=== PATIENT | female | born 1995 | race African-American/Black ===

== ENCOUNTER 2016-07-01 13:53 | Emergency (ER) | payer OTHER ==
[2016-07-01 14:06] VITALS: BP 145/89; PULSE 87; TEMP 98.2; BMI 21.9
[2016-07-01] MEDS ORDERED: ALBUTEROL SO4 2.5/IPRATROPIUM 0.5 INH SOL 3 ML VIAL.NEB. NEB ONE ×2 (15:20→15:57)
--- NOTE | 2016-07-01 15:57 | PDOC ---
History of Present Illness - General Chief Complaint: Asthma Stated Complaint: ASTHMA Time Seen by Provider: 07/01/16 14:25 - History of Present Illness Initial Comments: 07/01/16 15:26 CHIEF COMPLAINT: asthma exacerbation HISTORY OF PRESENT ILLNESS: 21 yo F with hx of asthma presents to [facility] with shortness of breath x 1 week. Patient states she has a history of asthma but has not had an asthma attack for many years. She reports "a lot of coughing this week, it's productive and then it becomes dry" but denies any fever, nausea, vomiting, diarrhea, body aches, runny nose, or sneezing. No recent travel or sick contacts. PAST MEDICAL HISTORY: Denies past medical history FAMILY HISTORY: Denies SOCIAL HISTORY: Denies tobacco, alcohol, illicit drug use. SURGICAL HISTORY: Denies ALLERGIES: No known drug allergies REVIEW OF SYSTEMS General/Constitutional: Denies fever or chills. Denies weakness, weight change. HEENT: Denies change in vision. Denies ear pain or discharge. Denies sore throat. Cardiovascular: Denies chest pain or shortness of breath. Respiratory: Cough x 1 week. Wheezing for the last 2-3 days. Denies hemoptysis. Gastrointestinal: Denies nausea, vomiting, diarrhea or constipation. Denies rectal bleeding. Genitourinary: Denies dysuria, frequency, or change in urination. Musculoskeletal: Denies joint or muscle swelling or pain. Denies neck or back pain. Skin and breasts: Denies rash or easy bruising. Neurologic: Denies headache, vertigo, loss of consciousness, or loss of sensation. PHYSICAL EXAM General Appearance: Well-appearing, appropriately dressed. No apparent distress. HEENT: EOMI, PERRLA, normal voice, pharynx normal. No conjunctival pallor. No photophobia, scleral icterus. Neck: Supple. Trachea midline. No tenderness, rigidity, carotid bruit, stridor , lymphadenopathy, or thyromegaly. Respiratory/Chest: Diffuse wheezing to bilateral lungs. No shortness of breath , chest tenderness, respiratory distress, accessory muscle use. No crackles, rales, rhonchi, stridor, dullness Cardiovascular: RRR. S1, S2. Musculoskeletal/Extremities: Normal inspection. No tenderness to extremities, pedal edema, swelling, erythema or deformity. Integumentary: Appropriate color, dry, warm. No cyanosis, erythema, jaundice or rash Neurologic: light out examiner II-XII intact. Fully oriented, alert. Appropriate mood/affect. Motor strength 5/5. No appreciable EOM palsy, facial droop or sensory deficit. Past History - Past Medical History Allergies/Adverse Reactions: Allergies Allergy/AdvReac Type Severity Reaction Status Date / Time No Known Allergies Allergy Verified 11/20/11 20:06 Home Medications: Ambulatory Orders Unobtainable Home Med List 0 dose .ROUTE UTDICT 11/20/11 Albuterol Sulfate Inhaler - [Ventolin HFA Inhaler -] 1 - 2 inh PO QID #1 inhaler 07/01/16 Azithromycin [Zithromax Tri-Gui (3 DAYS) -] 500 mg PO DAILY #3 tablet 07/01/16 Asthma: Yes HIV: Yes - Psycho/Social/Smoking Cessation Hx Anxiety: No Suicidal Ideation: No Smoking Status: No Smoking History: Never smoked Number of Cigarettes Smoked Daily: 0 Hx Alcohol Use: No Drug/Substance Use Hx: No Substance Use Type: None *Physical Exam - Vital Signs Last Vital Signs Temp Pulse Resp BP Pulse Ox 98.2 F 87 20 145/89 95 07/01/16 14:02 07/01/16 14:02 07/01/16 14:02 07/01/16 14:02 07/01/16 14:02 ED Treatment Course - Medications Given in the ED: ED Medications Discontinued Medications Generic Name Dose Route Start Last Admin Trade Name Freq PRN Reason Stop Dose Admin Albuterol/Ipratropium 1 amp 07/01/16 15:20 07/01/16 15:22 Duoneb - NEB 07/01/16 15:21 1 amp ONCE ONE Administration Medical Decision Making - Medical Decision Making 07/01/16 15:57 21 yo F with hx of asthma presents to [facility] with asthma exacerbation. -duoneb treatment Patient reassessed, states she still feels SOB. -2nd duoneb treatment -10 mg Decadron po Advised patient to follow up with primary care doctor for further management of asthma. Advised patient of signs and symptoms for return to ER; patient verbalized understanding and agrees to plan. 07/01/16 15:59 *DC/Admit/Observation/Transfer Diagnosis at time of Disposition: Bronchitis with asthma, acute - Discharge Dispostion Disposition: HOME Condition at time of disposition: Improved - Prescriptions Prescriptions: Albuterol Sulfate Inhaler - [Ventolin HFA Inhaler -] 1 - 2 inh PO QID #1 inhaler Azithromycin [Zithromax Tri-Gui (3 DAYS) -] 500 mg PO DAILY #3 tablet - Patient Instructions Printed Discharge Instructions: DI for Asthma -- Adult, DI for Acute Bronchitis Additional Instructions: Please take medications as prescribed and follow up with your primary care doctor within 3-5 days for further evaluation and continued management of your asthma. If you experience any shortness of breath unrelieved by your inhaler, fever, vomiting, diarrhea, or any new or worsening symptoms, please return to the ER.
[2016-07-01] MEDS ORDERED: DEXAMETHASONE LIQUID 0.5 MG/5 ML 240 ML BULK BOTTLE PO ONE (15:59)
[2016-07-01] MEDS ORDERED: DEXAMETHASONE SOD PHOSPHATE 10 MG/1 ML VIAL ONE (16:02)
== END 2016-07-01 16:10 | disposition home or self-care (01) ==
LOC: JERFT 13:53
PROC: 3E0F7GC Introduction of Other Therapeutic Substance into Respiratory Tract, Via Natural or Artificial Opening (ICD-10-PCS; principal; 2016-07-01)
DX: J45.909 Unspecified asthma, uncomplicated (principal); J40 Bronchitis, not specified as acute or chronic
CPT/HCPCS: 99281-25

== ENCOUNTER 2017-06-22 09:48 | Emergency (ER) | payer OTHER ==
[2017-06-22 09:55] VITALS: BMI 23.6
[2017-06-22] MEDS ORDERED: ACETAMINOPHEN 500 MG TABLET (FP) PO ONE (12:13)
--- NOTE | 2017-06-22 12:17 | PDOC ---
History of Present Illness - General Chief Complaint: Cold Symptoms Stated Complaint: THROAT PAIN, (ASTHMA), BODY ACHES Time Seen by Provider: 06/22/17 12:02 History Source: Patient Exam Limitations: No Limitations - History of Present Illness Initial Comments: 06/22/17 12:13 This is a 22-year-old female with past medical history of asthma and HIV positive who presents with fevers, moist cough, sore throat, headaches, upper back pain, body aches, shortness of breath and wheezing since awaking this morning. Patient reports her infectious disease doctor is at or [facility] her most recent viral load was 80,000 the patient reports that number is down trending. She is unsure of her CD4 count. Patient states she has never been intubated for her asthma and only uses her pump approximately 4-5 times annually. Patient denies nasal congestion, chest pain, abdominal pain, nausea, vomiting, diarrhea, dysuria, Hemoptysis or weight loss. Past History - Past Medical History Allergies/Adverse Reactions: Allergies Allergy/AdvReac Type Severity Reaction Status Date / Time No Known Allergies Allergy Verified 06/22/17 09:54 Home Medications: Ambulatory Orders Amoxicillin - [Amoxicillin 500mg Capsule -] 500 mg PO BID #20 capsule 06/22/17 predniSONE [Deltasone -] 40 mg PO DAILY #6 tablet 06/22/17 Asthma: Yes COPD: No - Suicide/Smoking/Psychosocial Hx Smoking Status: No Smoking History: Current every day smoker Number of Cigarettes Smoked Daily: 0 Information on smoking cessation initiated: Yes 'Breaking Loose' booklet given: 06/22/17 Hx Alcohol Use: No Drug/Substance Use Hx: Yes (marijuana) Substance Use Type: None Review of Systems - Review of Systems Able to Perform ROS?: Yes Is the patient limited Cymro proficient: No Constitutional: Yes: See HPI HEENTM: Yes: See HPI Respiratory: Yes: See HPI Cardiac (ROS): No: Symptoms Reported ABD/GI: No: Symptoms Reported : No: Symptoms Reported Musculoskeletal: Yes: See HPI Integumentary: No: Symptoms Reported Neurological: No: Symptoms reported Endocrine: No: Symptoms Reported Hematologic/Lymphatic: No: Symptoms Reported *Physical Exam - Vital Signs Last Vital Signs Temp Pulse Resp BP Pulse Ox 99.7 F H 105 H 19 139/89 97 06/22/17 09:51 06/22/17 09:51 06/22/17 09:51 06/22/17 09:51 06/22/17 09:51 - Physical Exam General Appearance: Yes: Appropriately Dressed. No: Apparent Distress HEENT: positive: Pharyngeal Erythema. negative: Tonsillar Exudate, Tonsillar Erythema, Nasal Congestion, Rhinorrhea, Sinus Tenderness Neck: positive: Trachea midline, Supple Respiratory/Chest: positive: Wheezing. negative: Respiratory Distress, Accessory Muscle Use Cardiovascular: positive: Regular Rhythm, Tachycardia. negative: Murmur Gastrointestinal/Abdominal: positive: Normal Bowel Sounds, Soft. negative: Tender Musculoskeletal: positive: Normal Inspection. negative: CVA Tenderness Extremity: positive: Normal Inspection, Normal Range of Motion Integumentary: positive: Normal Color, Dry, Warm Neurologic: positive: payroll accounting manager II-XII NML intact, Fully Oriented, Alert, Normal Response, Motor Strength 08/07 ED Treatment Course - LABORATORY CBC & Chemistry Diagram: 06/22/17 14:37 06/22/17 14:37 Medical Decision Making - Medical Decision Making 06/22/17 12:29 A/P: 22-year-old woman with history of HIV and asthma with moist cough upper back pain shortness of breath and wheezing, short throat and headache since awaking this morning Pharyngeal erythema present. No exudates present No cervical lymphadenopathy present Lungs with scattered wheezes No tenderness to palpation of back S1 and S2 present patient is currently tachycardic a heart rate of 110. No murmur, rub or gallop present Abdomen soft nontender nondistended. Skin warm to touch. Given the patient is HIV positive with a viral load of 80,000 I will rule out for pneumonia, influenza, sepsis. Labs including lactate and blood cultures, urinalysis, urine , urine culture Chest x-ray chest for to the main ER for further evaluation. Sign out given to SUZY Larson. *DC/Admit/Observation/Transfer Diagnosis at time of Disposition: Strep throat, Asthma exacerbation - Discharge Dispostion Disposition: HOME Condition at time of disposition: Improved - Prescriptions Prescriptions: Amoxicillin - [Amoxicillin 500mg Capsule -] 500 mg PO BID #20 capsule predniSONE [Deltasone -] 40 mg PO DAILY #6 tablet - Referrals - Patient Instructions Printed Discharge Instructions: DI for Asthma -- Adult, DI for Strep Throat Additional Instructions: Please take your medication as prescribed and please drink plenty of fluids. If you develop any aches or pains you may take Tylenol or Motrin for discomfort. Please carry your inhaler at all times and take prednisone starting tomorrow since your given your first dose here in the ER. Please also follow-up with your primary care physician. - Post Discharge Activity
[2017-06-22] MEDS ORDERED: ACETAMINOPHEN 500 MG TABLET (FP) ONE (12:19)
[2017-06-22] MEDS ORDERED: ALBUTEROL SO4 2.5/IPRATROPIUM 0.5 INH SOL 3 ML VIAL.NEB. NEB ONE ×3 (12:19→14:33)
[2017-06-22] MEDS: ALBUTEROL SO4 2.5/IPRATROPIUM 0.5 INH SOL 3 ML VIAL.NEB. NEB SCH ×4 (12:21→15:19)
[2017-06-22] MEDS ORDERED: methylPREDNISolone NA SUCC 125 MG/2 ML VIAL IVPB ONE (12:26)
--- NOTE | 2017-06-22 13:03 | PDOC ---
*Physical Exam - Vital Signs Last Vital Signs Temp Pulse Resp BP Pulse Ox 99.7 F H 105 H 19 139/89 97 06/22/17 09:51 06/22/17 09:51 06/22/17 09:51 06/22/17 09:51 06/22/17 09:51 - Physical Exam HEENT: positive: Pharynx Normal (erythema without exudate), Tonsillar Erythema Neck: positive: Supple. negative: Lymphadenopathy (R), Lymphadenopathy (L) Respiratory/Chest: positive: Wheezing (expiratory to right) Integumentary: positive: Normal Color, Dry, Warm Neurologic: positive: Motor Strength 5/5 (ambulatory) ED Treatment Course - LABORATORY CBC & Chemistry Diagram: 06/22/17 14:37 06/22/17 14:37 - Medications Given in the ED: ED Medications Discontinued Medications Generic Name Dose Route Start Last Admin Trade Name Freq PRN Reason Stop Dose Admin Acetaminophen 1,000 mg 06/22/17 12:13 06/22/17 12:21 Tylenol - PO 06/22/17 12:14 1,000 mg ONCE ONE Administration Medical Decision Making - Medical Decision Making 06/22/17 13:00 Patient received in sign out from SUZY Dillard. Patient here with complaints of pharyngeal erythema along with fever, cough, wheezing. Patient disclosed in fast track that [place] [id number]. Patient denies hemoptysis, weight loss, night sweats recent incarceration or residing in community environments. patient's concerning for sepsis. Workup initiated 06/22/17 14:04 Patient also added for rapid strep along with second DuoNeb 06/22/17 14:04 Laboratory Tests 06/22/17 13:00 Urine Protein 2+ H Urine Ketones Negative Urine Blood 1+ H Urine Urobilinogen 4.0 e.u/dl H Ur Leukocyte Esterase 1+ H Urine WBC (Auto) 9 Urine RBC (Auto) 6 Patient has no urinary complaints or abdominal pain on exam. Patient had urine culture sent 06/22/17 14:34 Influenza negative. Rapid strep positive. Will discharge patient home with amoxicillin along with prednisone for 3 more days. Patient states has an inhaler 06/22/17 15:10 Laboratory Tests 06/22/17 14:37 WBC 9.9 Hgb 14.1 Hct 40.8 Neutrophils % 85.0 H Lymphocytes % 7.9 L 06/22/17 15:20 Laboratory Tests 06/22/17 14:37 Sodium 137 Potassium 3.6 Chloride 100 Carbon Dioxide 24 Anion Gap 13 BUN 8 Creatinine 0.8 Creat Clearance w eGFR > 60 Random Glucose 100 Calcium 9.4 AST 46 H ALT 68 Alkaline Phosphatase 84 Total Protein 8.3 H Albumin 4.6 Selected Entries 06/22/17 15:43 Temperature 98.9 F Pulse Rate [ 90 Apical] Respiratory 16 Rate Blood Pressure 110/62 [Right Arm] Blood Pressure 78 Mean [Right Arm ] O2 Sat by Pulse 98 Oximetry (%) Chest x-ray negative. Patient states feeling better. Laboratory Tests 06/22/17 06/22/17 14:37 14:37 Lactic Acid 1.9 Total Bilirubin 0.6 *DC/Admit/Observation/Transfer Diagnosis at time of Disposition: Strep throat, Asthma exacerbation - Discharge Dispostion Disposition: HOME Condition at time of disposition: Improved - Prescriptions Prescriptions: Amoxicillin - [Amoxicillin 500mg Capsule -] 500 mg PO BID #20 capsule predniSONE [Deltasone -] 40 mg PO DAILY #6 tablet - Referrals - Patient Instructions Printed Discharge Instructions: DI for Asthma -- Adult, DI for Strep Throat Additional Instructions: Please take your medication as prescribed and please drink plenty of fluids. If you develop any aches or pains you may take Tylenol or Motrin for discomfort. Please carry your inhaler at all times and take prednisone starting tomorrow since your given your first dose here in the ER. Please also follow-up with your primary care physician. - Post Discharge Activity
--- NOTE | 2017-06-22 13:12 | PDOC ---
*Physical Exam - Vital Signs Last Vital Signs Temp Pulse Resp BP Pulse Ox 99.7 F H 105 H 19 139/89 97 06/22/17 09:51 06/22/17 09:51 06/22/17 09:51 06/22/17 09:51 06/22/17 09:51 ED Treatment Course - ADDITIONAL ORDERS Additional order review: 06/22/17 12:13 Influenza Types A,B Antigen (YAZMIN) - Preliminary Nasopharyngeal Swab - Preliminary - Medications Given in the ED: ED Medications Discontinued Medications Generic Name Dose Route Start Last Admin Trade Name Freq PRN Reason Stop Dose Admin Acetaminophen 1,000 mg 06/22/17 12:13 06/22/17 12:21 Tylenol - PO 06/22/17 12:14 1,000 mg ONCE ONE Administration Albuterol/Ipratropium 1 amp 06/22/17 12:15 06/22/17 12:21 Duoneb - NEB 06/22/17 13:01 1 amp Q15M RANDI Administration Medical Decision Making - Medical Decision Making 06/22/17 13:12 Patient seen and evaluated with the nurse practitioner. I agree with the overall evaluation, assessment, and management with the following summary of visit: 22-year-old female HIV presents with influenza-like illness consisting of fevers and URI symptoms. Initially seen in fast track, referred to main ED for sepsis workup. Sepsis protocol initiated, we'll reassess
[2017-06-22 13:15] LABS: HCG,QUALITATIVE URINE NEGATIVE
[2017-06-22 13:22] LABS: URINE APPEARANCE SLCLOUDY; URINE BILIRUBIN NEGATIVE (NEGATIVE); URINE BLOOD 1+ (NEGATIVE); URINE COLOR DKYELLOW; URINE GLUCOSE (UA) NEGATIVE (NEGATIVE); URINE KETONE NEGATIVE (NEGATIVE); URINE NITRITE NEGATIVE (NEGATIVE); URINE UROBILINOGEN 4.0 E.U/dl mg/dL (0.2-1.0)
[2017-06-22 13:38] LABS: URINE LEUK ESTERASE 1+ (NEGATIVE); URINE PROTEIN 2+ (NEGATIVE)
[2017-06-22 13:40] LABS: EPI CELLS MODERATE /HPF (FEW); URINE BACTERIA RARE /hpf (NONE SEEN); URINE MUCUS MANY
[2017-06-22] MEDS ORDERED: methylPREDNISolone NA SUCC 125 MG/2 ML VIAL ONE ×2 (14:34→14:39)
[2017-06-22 14:51] LABS: BASO % 0.1 % (0-2.0); EOS % 2.3 % (0-4.5); HEMATOCRIT 40.8 % (32.4-45.2); HEMOGLOBIN 14.1 GM/dL (10.7-15.3); LYMPH % 7.9 % (8-40); MCH 29.6 pg (25.7-33.7); MCHC 34.6 g/dl (32.0-36.0); MEAN CELL VOLUME 85.7 fl (80-96); MEAN PLT VOLUME 8.7 fl (7.5-11.1); MONO % 4.7 % (3.8-10.2); PLATELET COUNT 216 K/MM3 (134-434); RBC 4.76 M/mm3 (3.60-5.2); RDW 13.4 % (11.6-15.6); WHITE BLOOD COUNT 9.9 K/mm3 (4.0-10.0)
[2017-06-22 15:12] LABS: ALBUMIN 4.6 g/dl (3.4-5.0); ALK PHOS 84 U/L (45-117); ANION GAP 13 (8-16); BLOOD UREA NITROGEN 8 mg/dL (7-18); CALCIUM 9.4 mg/dL (8.5-10.1); CHLORIDE 100 mmol/L (98-107); CO2 24 mmol/L (21-32); CREATININE 0.8 mg/dL (0.55-1.02); GLUCOSE,RANDOM 100 mg/dL (74-106); POTASSIUM 3.6 mmol/L (3.5-5.1); SGOT/AST 46 U/L (15-37); SGPT/ALT 68 U/L (12-78); SODIUM 137 mmol/L (136-145); TOT PROT 8.3 g/dl (6.4-8.2)
[2017-06-22 15:39] LABS: BILIRUBIN,TOTAL 0.6 mg/dL (0.2-1.0)
[2017-06-22 15:44] VITALS: BP 110/62; PULSE 90; TEMP 98.9
== END 2017-06-22 15:44 | disposition home or self-care (01) ==
LOC: JERFT 09:48 → JER 09:48
PROC: 3E0333Z Introduction of Anti-inflammatory into Peripheral Vein, Percutaneous Approach (ICD-10-PCS; principal; 2017-06-22)
PROC: 3E0F7GC Introduction of Other Therapeutic Substance into Respiratory Tract, Via Natural or Artificial Opening (ICD-10-PCS; 2017-06-22)
PROC: 3E0F7GC Introduction of Other Therapeutic Substance into Respiratory Tract, Via Natural or Artificial Opening (ICD-10-PCS; 2017-06-22)
PROC: 3E0F7GC Introduction of Other Therapeutic Substance into Respiratory Tract, Via Natural or Artificial Opening (ICD-10-PCS; 2017-06-22)
PROC: 3E0F7GC Introduction of Other Therapeutic Substance into Respiratory Tract, Via Natural or Artificial Opening (ICD-10-PCS; 2017-06-22)
DX: J02.0 Streptococcal pharyngitis (principal); B95.0 Streptococcus, group A, as the cause of diseases classified elsewhere; J45.901 Unspecified asthma with (acute) exacerbation; Z21 Asymptomatic human immunodeficiency virus [HIV] infection status; F17.210 Nicotine dependence, cigarettes, uncomplicated
CPT/HCPCS: 36415; 71046-TC-FY; 80053; 81003; 81015; 83605; 84703; 85025; 87040; 87070; 87086; 87430; 87804; 99282-25

== ENCOUNTER 2020-08-22 17:07 | Emergency (ER) | payer OTHER ==
[2020-08-22 17:20] VITALS: BP 153/96; PULSE 86; TEMP 98.3; BMI 30.8
[2020-08-22] MEDS ORDERED: IBUPROFEN 600 MG TABLET (FP) PO ONE ×2 (17:39→17:49)
== END 2020-08-22 18:42 | disposition home or self-care (01) ==
LOC: JERFT 17:07
DX: M25.561 Pain in right knee (principal)
CPT/HCPCS: 73562-TC-RT-FY; 99284-25